=== PATIENT | male | born 1965 | race Caucasian/White ===

== ENCOUNTER 2023-08-28 19:35 | Inpatient (IN) | payer OTHER, MEDICAID ==
[~2023-08-28] VITALS: Ht 165.1 cm; Wt 76.2 kg
[2023-08-28 19:39] VITALS: O2SAT 99
[2023-08-28] MEDS ORDERED: DEXAMETHASONE 4MG/ML 1ML VIAL IV ONE (20:15)
[2023-08-28 20:41] LABS: BASOPHILS % 0.8 % (0.0-2.0); EOSINOPHILS % 2.2 % (0.0-5.0); HEMATOCRIT. 34.1 % (42.0-52.0); HEMOGLOBIN. 11.5 g/dL (14.0-18.0); LYMPHOCYTES % 14.5 % (20.0-50.0); MEAN CORPUSCULAR HEMOGLOBIN 30.8 pg (28.0-32.0); MEAN CORPUSCULAR HGB CONC 33.7 g/dL (31.0-37.0); MEAN CORPUSCULAR VOLUME 91.4 fL (80.0-94.0); MEAN PLATELET VOLUME 8.5 fl (7.4-10.4); MONOCYTES % 12.8 % (2.0-8.0); NEUTROPHILS % 69.7 % (40.0-76.0); PLATELET 189 x1000/uL (130-400); RED BLOOD CELL COUNT 3.73 mill/uL (4.7-6.1); RED CELL DISTRIBUTION WIDTH 15.8 % (11.6-14.6); WHITE BLOOD COUNT 7.8 x1000/uL (4.5-11.0)
[2023-08-28 20:47] LABS: CHLORIDE 108 mEq/L (98-107); SODIUM 135 mEq/L (136-145)
[2023-08-28 20:48] LABS: CALCIUM 8.9 mg/dL (8.7-10.4); CARBON DIOXIDE 23 mEq/L (21-32)
[2023-08-28 20:49] LABS: INR 1.1; PROTHROMBIN TIME 12.4 sec (9.6-11.0)
[2023-08-28 20:53] LABS: CREATININE 0.9 mg/dL (0.6-1.3); GLUCOSE 84 mg/dL (70-105); UREA NITROGEN BLOOD 13 mg/dL (9-23)
[2023-08-28 20:55] LABS: ALANINE AMINOTRANSFERASE 10 IU/L (10-49); ALBUMIN 4.2 g/dL (3.2-4.8); ASPARTATE AMINOTRANSFERASE 23 IU/L (<34); BILIRUBIN DIRECT 0.2 mg/dL (<=3.0); BILIRUBIN TOTAL 0.4 mg/dL (0.1-1.0); PROTEIN TOTAL 7.6 g/dL (6.0-8.3); TROPONIN I HIGH SENSITIVITY 6 ng/L (3.0-53)
[2023-08-28 21:03] LABS: C REACTIVE PROTEIN QUANT 9.4 mg/L (0.0-3.0)
[2023-08-28] MEDS: SODIUM CHLORIDE 0.9% 1,000 ML IV ONE (22:50)
[2023-08-28] MEDS: DEXAMETHASONE 4MG/ML 1ML VIAL IV NR (23:04)
[2023-08-29] MEDS ORDERED: ACETAMINOPHEN 325MG TABLET PO PRN ×2 (00:30)
[2023-08-29] MEDS ORDERED: CLONIDINE 0.1MG TABLET PO PRN (00:30)
[2023-08-29] MEDS ORDERED: DOCUSATE SODIUM 100MG CAPSULE PO PRN (00:30)
[2023-08-29] MEDS ORDERED: MAGNESIUM/ALUMINUM HYDROXIDE/SIMETHICONE 30ML UDC PO PRN (00:30)
[2023-08-29] MEDS ORDERED: GUAIFENESIN 200MG/10ML SUGAR FREE UDC PO PRN (00:30)
[2023-08-29] MEDS ORDERED: ONDANSETRON HCL 4MG/2ML INJ IV PRN (00:30)
[2023-08-29] MEDS: DEXT 5%/LACTATED RINGERS 1,000 ML IV SCH (00:30)
[2023-08-29] MEDS ORDERED: IPRATROPIUM/ALBUTEROL 0.5-3(2.5)MG/3ML NEB HHN PRN (00:30)
[2023-08-29 00:58] VITALS: BP 133/68; PULSE 58; RESP 20; TEMP 98.4
[2023-08-29] MEDS ORDERED: DEXTROSE 50% WATER 50ML SYRINGE IV PRN (01:15)
[2023-08-29] MEDS: IPRATROPIUM/ALBUTEROL 0.5-3(2.5)MG/3ML NEB HHN SCH (01:33)
[2023-08-29 02:04] LABS: IRON 31 ug/dL (65-175)
[2023-08-29 02:06] LABS: TOTAL IRON BINDING CAPACITY 265 ug/dl (250-425)
[2023-08-29 02:11] LABS: FERRITIN 102 ng/mL (22-322); FOLIC ACID (FOLATE) SERUM 18.01 ng/mL (>5.38); VITAMIN B12 SERUM 466 pg/mL (211-911)
[2023-08-29] MEDS: BLOOD SUGAR DIAGNOSTIC STRIP TEST SCH (06:33)
[2023-08-29] MEDS ORDERED: PANTOPRAZOLE 40MG DR TABLET PO SCH (06:45)
[2023-08-29] MEDS ORDERED: INSULIN LISPRO 100 UNITS/ML SUBCUT SCH (07:15)
[2023-08-29] MEDS ORDERED: APIXABAN 5 MG TABLET PO SCH (09:00)
[2023-08-29] MEDS ORDERED: DEXAMETHASONE 4MG/ML 1ML VIAL IV SCH (09:00)
[2023-08-29] MEDS ORDERED: GUAIFENESIN 600MG ER TABLET PO SCH (09:00)
== END 2023-08-29 07:22 | disposition left against medical advice (07) | DRG 177 ==
LOC: ER 19:51 → 5WST 21:58 → EDBEDREQ 21:59 → EDBEDREQTM 21:59 → 6WST 08-29 01:15
PROVIDERS: ADMIT Internal Medicine; ATTEND Internal Medicine
DX: U07.1 COVID-19 (principal); J96.21 Acute and chronic respiratory failure with hypoxia; E87.1 Hypo-osmolality and hyponatremia; D64.9 Anemia, unspecified; E11.9 Type 2 diabetes mellitus without complications; E66.9 Obesity, unspecified; R74.01 Elevation of levels of liver transaminase levels; R00.1 Bradycardia, unspecified; Z68.28 Body mass index [BMI] 28.0-28.9, adult; R56.9 Unspecified convulsions; J44.89 Other specified chronic obstructive pulmonary disease; I10 Essential (primary) hypertension; F17.210 Nicotine dependence, cigarettes, uncomplicated; Z79.01 Long term (current) use of anticoagulants; Z88.0 Allergy status to penicillin
CPT/HCPCS: 36415; 71045; 80048; 80076; 82607; 82728; 82746; 82962; 83036; 83540; 83550; 83605; 84145; 84484; 85025; 85384; 86140; 87426; 99285; J1100; J7030